=== PATIENT | female | born 1970 | race Caucasian/White ===

== ENCOUNTER 2020-10-29 09:00 | Emergency (ER) | payer MEDICAID ==
[2020-10-29] MEDS ORDERED: Sodium Chloride 0.9% 10 ML Syringe FLUSH PRN (09:21)
[2020-10-29] MEDS ORDERED: Sodium Chloride 0.9% 2.5 ML Syringe FLUSH PRN (09:21)
[2020-10-29] MEDS ORDERED: LORazepam 2 MG/ML SDV IVPUSH ONE (09:22)
--- NOTE | 2020-10-29 09:26 | EDM.PDOC ---
ED HPI GENERAL MEDICAL PROBLEM - General Chief Complaint: Chest Pain Stated Complaint: chest pain Time Seen by Provider: 10/29/20 09:01 - History of Present Illness INITIAL COMMENTS - FREE TEXT/NARRATIVE: 49-year-old female smoker with no known personal past medical history but her mother who did have a heart attack who is presenting with 2 weeks of intermittent left-sided chest pain she feels it under her left breast in a part icular spot sometimes it is aching sometimes it is heavy sometimes it occurs when she is doing nothing other times it will occur during an activity. However, she states that she really just sits at her computer and writes all day. Patient notes that she has been taking aspirin to try and help with this pain she took 2 324 mg aspirin tablets earlier today. So she is not very active. It is sometimes associated with shortness of breath. Patient reports a great deal of stress in her life and thinks that this is likely stress related. No current lower extremity pain or swelling. However the patient notes that sometimes when she eats a great deal of salt her ankles will swell but then will go back down to normal with change in diet and leg elevation. She has a history of asthma and sometimes uses her son's nebulizer treatments as they do not have enough money for her to get independent supplies. Right now the symptoms are improving during conversation and are minimal to moderate at this time. chest Pain Score (Numeric/FACES): 5 - Related Data Allergies Allergy/AdvReac Type Severity Reaction Status Date / Time phenytoin sodium Allergy Cannot Verified 10/29/20 09:22 [From Dilantin] Remember phenytoin sodium extended Allergy Cannot Verified 10/29/20 09:22 [From Dilantin] Remember Home Meds: Home Meds Albuterol [Ventolin HFA] 1 puff INH Q4H PRN #1 inh 09/26/14 [Rx] Albuterol [Proventil Neb Soln] 3 ml INH Q4H PRN 10/29/20 [History] ED ROS GENERAL - Review of Systems Review Of Systems: See Below Free Text/Narrative/Comment: General: No fever. Skin: No rash. Eyes: No vision problems. ENT: No sore throat. Neck: No neck stiffness. Respiratory: Per HPI Cardiac: Per HPI Gastrointestinal: No nausea, vomiting or abdominal pain. Musculoskeletal: No myalgias/arthralgias. Neurologic: No headache. ED EXAM, GENERAL - Physical Exam Exam: See Below Free Text/Narrative:: General Appearance: No acute distress, appears comfortable Skin: No rash HEENT: Normocephalic/atraumatic, sclera anicteric, mucous membranes moist Neck: Normal range of motion Chest and Lungs: Bilateral breath sounds, clear to auscultation, no focal chest wall tenderness Cardiovascular: Regular rate and rhythm, no murmur Abdomen: Soft, non-tender Back: Normal Musculoskeletal: No edema or tenderness Neurologic: Awake, alert, no obvious deficits, moving all extremities Psychiatric: Appropriate, cooperative #1 Interpretation EKG Date: 10/29/20 Time: 09:24 EKG Interpretation Comments: Normal sinus rhythm with rate of 71 normal axis and intervals T wave inversions in V1 and V2 but no ST elevations or depressions likely normal variant QTC normal at 425 normal EKG Course - Vital Signs Last Recorded V/S: Last Vital Signs Temp 96.5 F L 10/29/20 09:01 Pulse 76 10/29/20 09:30 Resp 18 10/29/20 09:30 BP 149/94 H 10/29/20 09:30 Pulse Ox 100 10/29/20 09:30 - Orders/Labs/Meds Orders: Active Orders 24 hr Category Date Time Status Sodium Chloride 0.9% [Saline Flush] Med 10/29/20 09:21 Active 10 ml FLUSH ASDIRECTED PRN Sodium Chloride 0.9% [Saline Flush] Med 10/29/20 09:21 Active 2.5 ml FLUSH ASDIRECTED PRN Saline Lock Insert [OM.PC] Stat Oth 10/29/20 09:21 Ordered Medication Orders Sodium Chloride (Saline Flush) 10 ml FLUSH ASDIRECTED PRN PRN Reason: Keep Vein Open Last Admin: 10/29/20 09:29 Dose: 10 ml Documented by: MENA Sodium Chloride (Saline Flush) 2.5 ml FLUSH ASDIRECTED PRN PRN Reason: Keep Vein Open Last Admin: 10/29/20 09:29 Dose: 2.5 ml Documented by: MENA Labs: Laboratory Tests 10/29/20 10/29/20 10/29/20 Range/Units 09:15 09:15 09:15 WBC 7.07 (4.0-11.0) K/uL RBC 4.70 (4.30-5.90) M/uL Hgb 15.3 (12.0-16.0) g/dL Hct 45.5 (36.0-46.0) % MCV 96.8 (80.0-98.0) fL MCH 32.6 H (27.0-32.0) pg MCHC 33.6 (31.0-37.0) g/dL RDW Std Deviation 46.9 (28.0-62.0) fl RDW Coeff of Ata 13 (11.0-15.0) % Plt Count 311 (150-400) K/uL MPV 9.70 (7.40-12.00) fL Neut % (Auto) 57.2 (48.0-80.0) % Lymph % (Auto) 30.6 (16.0-40.0) % [place] % (Auto) 9.5 (0.0-15.0) % Eos % (Auto) 2.4 (0.0-7.0) % Baso % (Auto) 0.3 (0.0-1.5) % Neut # (Auto) 4.1 (1.4-5.7) K/uL Lymph # (Auto) 2.2 (0.6-2.4) K/uL [place] # (Auto) 0.7 (0.0-0.8) K/uL Eos # (Auto) 0.2 (0.0-0.7) K/uL Baso # (Auto) 0.0 (0.0-0.1) K/uL Nucleated RBC % 0.0 /100WBC Nucleated RBCs # 0 K/uL D-Dimer, Quantitative 0.45 (0.0-0.50) mg/L FEU Sodium 137 (136-145) mmol/L Potassium 4.2 (3.5-5.1) mmol/L Chloride 100 (98-107) mmol/L Carbon Dioxide 24.6 (21.0-32.0) mmol/L BUN 8 (7.0-18.0) mg/dL Creatinine 0.9 (0.6-1.0) mg/dL Est Cr Clr Drug Dosing 77.95 mL/min Estimated GFR (MDRD) > 60.0 ml/min Glucose 99 (74-106) mg/dL Calcium 8.8 (8.5-10.1) mg/dL Total Bilirubin 0.4 (0.2-1.0) mg/dL AST 49 H (15-37) IU/L ALT 71 H (14-63) IU/L Alkaline Phosphatase 92 (46-116) U/L Troponin I < 0.050 (0.000-0.056) ng/mL Total Protein 7.6 (6.4-8.2) g/dL Albumin 3.8 (3.4-5.0) g/dL Globulin 3.8 (2.6-4.0) g/dL Albumin/Globulin Ratio 1.0 (0.9-1.6) Meds: Medications Generic Name Dose Route Start Last Admin Trade Name Freq PRN Reason Stop Dose Admin Sodium Chloride 10 ml 10/29/20 09:21 10/29/20 09:29 Saline Flush FLUSH 10 ml ASDIRECTED PRN Administration Keep Vein Open Sodium Chloride 2.5 ml 10/29/20 09:21 10/29/20 09:29 Saline Flush FLUSH 2.5 ml ASDIRECTED PRN Administration Keep Vein Open Discontinued Medications Generic Name Dose Route Start Last Admin Trade Name Freq PRN Reason Stop Dose Admin Lorazepam 1 mg 10/29/20 09:22 10/29/20 09:28 Ativan IVPUSH 10/29/20 09:23 1 mg ONETIME ONE Administration Departure - Departure Time of Disposition: 10:23 Disposition: Home, Self-Care 01 Condition: Good Clinical Impression: Chest pain, Anxiety - Discharge Information *PRESCRIPTION DRUG MONITORING PROGRAM REVIEWED*: Not Applicable *COPY OF PRESCRIPTION DRUG MONITORING REPORT IN PATIENT CRISTIN: Not Applicable Instructions: Nonspecific Chest Pain, Adult, Managing Anxiety, Adult Forms: ED Department Discharge Additional Instructions: Your labs today showed normal liver and kidney function no signs of heart muscle damage and normal chest x-ray and no signs in your blood work of any type of blood clot leading to your symptoms. Certainly you have many reasons to feel stress and anxiety in this is likely playing into your symptoms. I encourage you to follow-up with the resources provided as well as with the primary care clinic. Please do not wait for the Medicaid to finish processing before you do this please start reaching out for follow-up tomorrow. If your symptoms worsen or you have any other new or concerning symptoms you are always welcome to return to the ER. [facility] [address] [place] [address] [facility] [address] [place] [address] The following information is given to patients seen in the emergency department who are being discharged to home. This information is to outline your options for follow-up care. We provide all patients seen in our emergency department with a follow-up referral. The need for follow-up, as well as the timing and circumstances, are variable depending upon the specifics of your emergency department visit. If you don't have a primary care physician on staff, we will provide you with a referral. We always advise you to contact your personal physician following an emergency department visit to inform them of the circumstance of the visit and for follow-up with them and/or the need for any referrals to a consulting specialist. The emergency department will also refer you to a specialist when appropriate. This referral assures that you have the opportunity for follow-up care with a specialist. All of these measure are taken in an effort to provide you with optimal care, which includes your follow-up. Under all circumstances we always encourage you to contact your private physician who remains a resource for coordinating your care. When calling for follow-up care, please make the office aware that this follow-up is from your recent emergency room visit. If for any reason you are refused follow-up, please contact the [facility] at and asked to speak to the emergency department charge nurse. Sepsis Event Note (ED) - Evaluation Sepsis Screening Result: No Definite Risk - Focused Exam Vital Signs: Vital Signs Temp Pulse Resp BP Pulse Ox 10/29/20 09:30 76 18 149/94 H 100 10/29/20 09:01 96.5 F L 76 20 142/82 H 100 - My Orders Last 24 Hours: My Active Orders 10/29/20 09:21 Sodium Chloride 0.9% [Saline Flush] 10 ml FLUSH ASDIRECTED PRN Sodium Chloride 0.9% [Saline Flush] 2.5 ml FLUSH ASDIRECTED PRN Saline Lock Insert [OM.PC] Stat - Assessment/Plan Last 24 Hours: My Active Orders 10/29/20 09:21 Sodium Chloride 0.9% [Saline Flush] 10 ml FLUSH ASDIRECTED PRN Sodium Chloride 0.9% [Saline Flush] 2.5 ml FLUSH ASDIRECTED PRN Saline Lock Insert [OM.PC] Stat Assessment:: 49-year-old female presenting with left-sided chest pain. Patient does appear somewhat anxious and certainly anxiety would be a reasonable diagnosis of exclusion. Her EKG is without any acute ischemia but troponin is pending. Given her relatively sedentary lifestyle and the shortness of breath associated with this D-dimer will be sent to evaluate for PE. The pain is not 10 out of 10 it is not tearing it does not radiate to the back she has no documented history of hypertension for all of these reasons I think aortic dissection is highly unlikely. There is nothing on her EKG that would suggest pericarditis myocarditis likewise felt unlikely there is no clinical findings that suggest decompensated heart failure. CBC CMP troponin D-dimer chest x-ray ordered 1 mg Ativan as therapeutic trial and will reassess. 0955: Pt's labs, including d-dimer, are normal. Pt's HEART score is 3 placing her in the low risk group. CXR remains pending. Ativan given at approx 0930, will reassess when CXR results. 1015: Pt's sx resolved at this time. She feels "very relaxed." Pt notes that she has been struggling with intrusive thoughts and dreams for years. She attributes it to her time in the [employer] [facility] system. In [place] she would smoke marijuana to help with this. However, she has been unable to find it here so ov er the last 3 years she has developed an etOH habit. She now drinks approx 10 shots of whiskey each night to try and help her sleep. She has been trying to apply for [place] medicaid as she can not work due to a shoulder injury in 2019. However, she found out that her identity was stolen in and someone has been collecting benefits under her name. She denies active SI or HI. Her thoughts are linear, goal and future oriented. We discussed the importance of following up in a primary care clinic and I encouraged her to do this tomorrow when they open and not to wait for the Medicaid to go through before doing this. CXR is normal per radiology and my own preliminary interpretation. Pt discharged as above.
[2020-10-29 09:50] LABS: BLOOD UREA NITROGEN,BUN 8 mg/dL (7.0-18.0); CARBON DIOXIDE,CO2 24.6 mmol/L (21.0-32.0); CHLORIDE,CL 100 mmol/L (98-107); GLUCOSE RANDOM 99 mg/dL (74-106); POTASSIUM,K 4.2 mmol/L (3.5-5.1); SODIUM,NA 137 mmol/L (136-145)
--- NOTE | 2020-10-29 10:15 | CR ---
INDICATION: Left-sided chest pain for 2 weeks. Chest pain has been nonstop for the last couple days and is stabbing in nature TECHNIQUE: PA and lateral chest x-ray. COMPARISON: Chest x-ray 09/26/2014. FINDINGS: Surgical clips upper abdomen. Heart size normal. Lungs clear without infiltrate or consolidation. Chest otherwise negative without acute disease. Dictated by Kristian Garcia MD @ Oct 29 2020 10:12AM Signed by Dr. Kristian Garcia @ Oct 29 2020 10:13AM
[2020-10-29 10:34] VITALS: BP 138/89; PULSE 66
== END 2020-10-29 10:32 | disposition home or self-care (01) ==
LOC: MW.ED 09:00
DX: F41.9 Anxiety disorder, unspecified (principal); F17.200 Nicotine dependence, unspecified, uncomplicated; Z88.8 Allergy status to other drugs, medicaments and biological substances
CPT/HCPCS: 36415; 71046; 80053; 84484; 85025; 85379; 93005; 96374; 99285; J2060; 93010; 99284

== ENCOUNTER 2021-09-16 14:41 | Emergency (ER) | payer SELFPAY ==
[2021-09-16 16:58] VITALS: BP 142/76; PULSE 72
== END 2021-09-16 16:55 | disposition home or self-care (01) ==
LOC: MW.ED 14:41
DX: S92.514A Nondisplaced fracture of proximal phalanx of right lesser toe(s), initial encounter for closed fracture (principal); J45.909 Unspecified asthma, uncomplicated; E66.9 Obesity, unspecified; Z68.37 Body mass index [BMI] 37.0-37.9, adult; Z88.8 Allergy status to other drugs, medicaments and biological substances
CPT/HCPCS: 73630-26-RT; 73630-RT; 99283-25

== ENCOUNTER 2021-11-27 00:08 | Emergency (ER) | payer SELFPAY ==
[2021-11-27] MEDS ORDERED: Bupivacaine 0.5% 10 ML SDV INJECT STA (00:21)
[2021-11-27] MEDS ORDERED: Lidocaine 1% 5 ML VIAL INJECT STA (00:22)
[2021-11-27] MEDS ORDERED: Acetaminophen/oxyCODONE 325-10 MG Tab PO STA (01:02)
[2021-11-27 01:28] VITALS: BP 137/91; PULSE 88
== END 2021-11-27 01:20 | disposition home or self-care (01) ==
LOC: MW.ED 00:08
DX: S92.512A Displaced fracture of proximal phalanx of left lesser toe(s), initial encounter for closed fracture (principal); J45.909 Unspecified asthma, uncomplicated; E66.9 Obesity, unspecified; Z68.35 Body mass index [BMI] 35.0-35.9, adult; Z88.8 Allergy status to other drugs, medicaments and biological substances; W22.8XXA Striking against or struck by other objects, initial encounter
CPT/HCPCS: 28515; 73630; 99283; A9270; J3490

== ENCOUNTER 2022-10-02 17:48 | Emergency (ER) | payer MEDICAID ==
[2022-10-02 19:48] VITALS: BP 127/87
[2022-10-02] MEDS ORDERED: cefTRIAXone 1 GM Vial IM ONE (20:02)
[2022-10-02] MEDS ORDERED: Dexamethasone 10 MG/ML SDV IVPUSH ONE (20:03)
[2022-10-02] MEDS ORDERED: Lidocaine 1% PF 2 ML SDV INJECT ONE (20:13)
[2022-10-02 20:49] VITALS: PULSE 78
== END 2022-10-02 20:48 | disposition home or self-care (01) ==
LOC: MW.ED 17:48
DX: K04.7 Periapical abscess without sinus (principal); I25.2 Old myocardial infarction; E66.9 Obesity, unspecified; Z68.37 Body mass index [BMI] 37.0-37.9, adult; Z88.8 Allergy status to other drugs, medicaments and biological substances; Z79.82 Long term (current) use of aspirin; Z79.899 Other long term (current) drug therapy; Z87.891 Personal history of nicotine dependence
CPT/HCPCS: 96372; 96374; 99282; J0696; J1100; 99284; J3490

== ENCOUNTER 2022-11-10 20:53 | Emergency (ER) | payer MEDICAID, OTHER ==
[2022-11-10 21:38] VITALS: BP 112/69
[2022-11-10] MEDS ORDERED: cefTRIAXone 1 GM Vial IM ONE (22:51)
[2022-11-10 23:17] LABS: CARBON DIOXIDE,CO2 30.3 mmol/L (21.0-32.0); POTASSIUM,K 3.8 mmol/L (3.5-5.1)
[2022-11-11 01:00] VITALS: PULSE 68
== END 2022-11-11 00:05 | disposition home or self-care (01) ==
LOC: MW.ED 20:53
DX: K04.7 Periapical abscess without sinus (principal); E66.9 Obesity, unspecified; I25.2 Old myocardial infarction; Z68.38 Body mass index [BMI] 38.0-38.9, adult; Z88.8 Allergy status to other drugs, medicaments and biological substances; Z79.82 Long term (current) use of aspirin; Z79.02 Long term (current) use of antithrombotics/antiplatelets; Z79.899 Other long term (current) drug therapy; Z87.891 Personal history of nicotine dependence
CPT/HCPCS: 36415; 80053; 84484; 85025; 93005; 96372; 99283; J0696

== ENCOUNTER 2022-11-26 20:02 | Emergency (ER) | payer MEDICAID ==
[2022-11-26] MEDS ORDERED: traMADol 50 MG Tab PO ONE (21:07)
[2022-11-26 22:04] VITALS: BP 143/56; PULSE 74
== END 2022-11-26 21:52 | disposition home or self-care (01) ==
LOC: MW.ED 20:02
DX: S93.602A Unspecified sprain of left foot, initial encounter (principal); I25.2 Old myocardial infarction; J45.909 Unspecified asthma, uncomplicated; E66.9 Obesity, unspecified; Z68.36 Body mass index [BMI] 36.0-36.9, adult; Z88.8 Allergy status to other drugs, medicaments and biological substances; Z79.02 Long term (current) use of antithrombotics/antiplatelets; Z79.899 Other long term (current) drug therapy; X50.1XXA Overexertion from prolonged static or awkward postures, initial encounter
CPT/HCPCS: 73630; 99283; A9270

== ENCOUNTER 2023-08-25 16:23 | Emergency (ER) | payer MEDICAID ==
[2023-08-25 16:45] VITALS: BP 135/88; PULSE 77
[2023-08-25] MEDS ORDERED: cefTRIAXone 1 GM Vial IM ONE (16:48)
[2023-08-25] MEDS ORDERED: Lidocaine 1% PF 2 ML SDV INJECT ONE (17:07)
== END 2023-08-25 19:05 | disposition home or self-care (01) ==
LOC: MW.ED 16:23
DX: K04.7 Periapical abscess without sinus (principal); E66.9 Obesity, unspecified; Z88.8 Allergy status to other drugs, medicaments and biological substances; Z79.899 Other long term (current) drug therapy; Z68.32 Body mass index [BMI] 32.0-32.9, adult
CPT/HCPCS: 96372; 99282; J0696; J3490

== ENCOUNTER 2023-09-06 22:05 | Emergency (ER) | payer MEDICAID ==
[2023-09-06 22:31] VITALS: BP 145/63
[2023-09-06] MEDS ORDERED: Clindamycin Phosphate in D5W 600 MG in Premix Bag 1 BAG IV ONE ×2 (22:46)
[2023-09-06 23:44] VITALS: PULSE 68
== END 2023-09-06 23:43 | disposition home or self-care (01) ==
LOC: MW.ED 22:05
DX: K04.7 Periapical abscess without sinus (principal); J45.909 Unspecified asthma, uncomplicated; E66.9 Obesity, unspecified; Z87.891 Personal history of nicotine dependence; Z79.899 Other long term (current) drug therapy; Z88.8 Allergy status to other drugs, medicaments and biological substances; Z68.34 Body mass index [BMI] 34.0-34.9, adult
CPT/HCPCS: 96365; 99282; J0736